=== PATIENT | male | born 1955 ===

== ENCOUNTER 2017-03-28 07:59 | Day surgery (SDC) | payer OTHER ==
[2017-03-28] MEDS ORDERED: Lactated Ringer's 500 ML IV ONE ×2 (10:44)
[2017-03-28] MEDS ORDERED: Propofol 10 mg/ml Inj (20 ML) ONE (10:44)
--- NOTE | 2017-03-28 10:44 | CP.SDSHP ---
Same Day Surgery H & P - History Proposed Procedure: COLONSCOPY Pre-Op Diagnosis: SEE NOTES - Previous Medical/Surgical History Cardiac: Hypertension Endocrine/Metabolic: Diabetes Neuro: Backaches Misc: Other Pain: 2.Mild Pain - Allergies Allergies: Allergies No Known Allergies Allergy (Verified 03/28/17 08:58) - Physical Exam General Appearance: N Vital Signs: Vital Signs 03/28/17 08:50 Temperature 98.0 F Pulse Rate 69 Respiratory 19 Rate Blood Pressure 99/60 L O2 Sat by Pulse 98 Oximetry Mental Status: Alert & Oriented x3 Neuro: WNL Heart: Other Lungs: WNL GI: WNL - {Optional Preform as Required} Breast: WNL Abdomen: Other Rectal: Other Integument: WNL : WNL Ortho: Other ENT: WNL - Impression Pt. Evaluated Today:Candidate for Anesthesia & Procedure: Yes - Date & Time Time: 10:44 Short Stay Discharge - Short Stay Discharge Admitting Diagnosis/Reason for Visit: SCREENING Disposition: HOME/ ROUTINE
[2017-03-28] MEDS ORDERED: Belladonna-Phenobarbital PO STA (10:45)
[2017-03-28] MEDS ORDERED: Lidocaine Hydrochloride 5 ML INJ ONE (11:07)
[2017-03-28 11:19] VITALS: TEMP 99.3
[2017-03-28 12:04] VITALS: O2SAT 100
[2017-03-28 12:21] VITALS: BP 131/74; PULSE 63; RESP 13
== END 2017-03-28 12:15 | disposition home or self-care (01) ==
LOC: C.ENDO 07:59
PROVIDERS: ATTEND Specialist
DX: K52.9 Noninfective gastroenteritis and colitis, unspecified (principal); K58.9 Irritable bowel syndrome, unspecified; I10 Essential (primary) hypertension; K64.8 Other hemorrhoids; Z68.37 Body mass index [BMI] 37.0-37.9, adult
CPT/HCPCS: 45380; 82948; 88305; J2704; J7120